=== PATIENT | female | born 1985 | race Two or more races ===

== ENCOUNTER 2023-01-11 01:25 | Emergency (ER) | payer SELFPAY ==
[~2023-01-11] VITALS: Ht 162.6 cm; Wt 91.0 kg
[2023-01-11 04:15] VITALS: BP 132/98
[2023-01-11] MEDS ORDERED: cefTRIAXone SOD 1,000 MG VL IM ONE (05:00)
[2023-01-12] MEDS ORDERED: CLIN300C70 PO (22:33)
== END 2023-01-11 05:06 | disposition home or self-care (01) ==
LOC: ER 01:25
DX: T19.2XXA Foreign body in vulva and vagina, initial encounter (principal); Z90.89 Acquired absence of other organs
CPT/HCPCS: 72192; 96372; 99285; J0696

== ENCOUNTER 2023-01-12 21:00 | Emergency (ER) | payer SELFPAY ==
[~2023-01-12] VITALS: Ht 160 cm; Wt 86.4 kg
[2023-01-12 21:20] VITALS: BP 133/95
[2023-01-12 22:30] VITALS: PULSE 96; RESP 18; O2SAT 98
[2023-01-12] MEDS ORDERED: CLINDAMYCIN HCL 150 MG CAP PO ONE ×2 (22:30→23:15)
[2023-01-12] MEDS ORDERED: CLIN300C70 PO (22:33)
== END 2023-01-12 23:34 | disposition home or self-care (01) ==
LOC: ER 21:02
DX: T19.2XXA Foreign body in vulva and vagina, initial encounter (principal); Z90.89 Acquired absence of other organs